=== PATIENT | male | born 1970 | race Two or more races ===

== ENCOUNTER 2018-01-22 20:13 | Emergency (ER) | payer SELFPAY ==
[~2018-01-22] VITALS: Ht 175.3 cm; Wt 108.9 kg
[~2018-01-22 20:13] MED LIST: HYDR-2595; IBUP800T24
[2018-01-22 20:30] VITALS: BP 150/96
[2018-01-22] MEDS ORDERED: HYDROcodone-ACET 10/325MG TAB PO ONE ×2 (22:15→22:30)
[2018-01-22] MEDS ORDERED: KETOROLAC TROMETH 60MG/2ML VIAL IM ONE ×2 (22:15→22:30)
== END 2018-01-22 23:34 | disposition home or self-care (01) ==
LOC: ER 20:15
DX: S42.214A Unspecified nondisplaced fracture of surgical neck of right humerus, initial encounter for closed fracture (principal); V86.56XA Driver of dirt bike or motor/cross bike injured in nontraffic accident, initial encounter; Y93.89 Activity, other specified; Y99.8 Other external cause status; Y92.89 Other specified places as the place of occurrence of the external cause
CPT/HCPCS: 29125; 73030; 99284; J1885